=== PATIENT | female | born 1985 | race Caucasian/White ===

== ENCOUNTER 2016-09-05 16:43 | Observation (INO) ==
--- NOTE | 2016-09-05 19:35 | Emergency Department Note ---
Disposition Clinical Impression: Abscess of neck Disposition: Still a Patient Condition: Undetermined Referrals: Yancy Luke CNP [Primary Care Provider] - Forms: ED Satisfaction Letter Time of Disposition: 21:12 Neck Injury/Pain HPI - General Chief Complaint: ED Neck Pain/Injury Stated Complaint: neck swelling and pain Time Seen by Provider: 09/05/16 18:54 Source: patient Mode of arrival: ambulatory Limitations: no limitations Nursing Notes Reviewed: Yes Vital Signs Reviewed: Yes - History of Present Illness HPI Narrative: 30-year-old female previous drug abuser [facility] emergency department after a relapse after a year where she injected her neck attempting to inject heroin and missed the vein. The patient since then has been complaining of worsening neck swelling and pain in the left lateral neck. The patient was seen by PCP today who referred the patient to the emergency department. The patient denies any difficulty breathing, chest pain, fevers. Difficulty swallowing due to pain. The patient states that it is tender to palpation. She denies any other complaints at this time. Pt Subjective Complaint: neck pain Onset (ago): day(s) (4) Radiation: left lateral Pain Severity: severe Pain Scale: 8 Quality: stabbing Duration: constant, gradually worsening Improves with: none Worsens with: none Associated symptoms: Reports: difficulty swallowing Treatments prior to arrival: none - Related Data Home Medications Medication Instructions Recorded Confirmed Gabapentin [Neurontin] 800 mg PO TID 09/05/16 09/05/16 Meloxicam [Meloxicam] 15 mg PO DAILY 09/05/16 09/05/16 Nicotine Patch [Nicoderm] 21 mg TD DAILY 09/05/16 09/05/16 cloNIDine HCl [CloNIDine HCl] 0.1 mg PO HS 09/05/16 09/05/16 lamoTRIgine [Lamictal] 100 mg PO HS 09/05/16 09/05/16 Allergies Allergy/AdvReac Type Severity Reaction Status Date / Time No Known Allergies Allergy Verified 03/21/16 21:01 All systems ED: reviewed and negative except as stated. Constitutional: Denies: fever, chills, weakness, weight change Eyes: Denies: eye pain, eye discharge, vision change ENT ED: Reports: throat pain, dysphagia Cardiovascular: Denies: chest pain, palpitations, dyspnea on exertion, edema, syncope Respiratory: Denies: cough, dyspnea, wheezes, hemoptysis, stridor Gastrointestinal: Denies: abdominal pain, nausea, vomiting, diarrhea, constipation, hematemesis, melena, hematochezia Musculoskeletal: Denies: back pain, neck pain, arthralgia, myalgia Integumentary: Denies: rash, abrasion, lesions Neurological: Denies: headache, weakness, numbness, paresthesias, confusion, abnormal gait, vertigo Past Medical History - Past Medical History Attestation: Yes The following information was validated with the patient. 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[employer] history: Reports: spontaneous - Social History Smoking Status: Current some day smoker Smokeless Tobacco Status: No Alcohol use: Reports: none Drug use: Reports: IVDU Physical Exam - General Limitations: no limitations General appearance: alert, in no apparent distress - Head Head exam: atraumatic, normocephalic, normal inspection - Eye Eye exam: Present: normal appearance, PERRL, EOMI - ENT ENT exam: normal oropharynx - Neck Neck exam: Present: tenderness, other (Large left sided mass and swelling, tender to palpation, warm to touch, roughly 8-10 cm in diameter.) - Chest Chest inspection: Present: normal inspection, symmetric chest wall rise - Respiratory Respiratory exam: Present: normal lung sounds bilaterally - Cardiovascular Cardiovascular exam: Present: regular rate, normal rhythm, normal heart sounds - Abdominal Exam Abdominal exam: Present: soft, Non-Tender. Absent: tenderness, distention, guarding, rebound, rigidity - Extremities Exam Extremities exam: Present: normal inspection, full ROM. Absent: tenderness, pedal edema - Back Exam Back exam: Present: normal inspection, full ROM. Absent: tenderness - Neurological Exam Neurological exam: Present: alert, oriented X3 - Skin Skin exam: Present: warm, dry, intact, normal color Course Vital Signs Temperature 98.1 F 09/05/16 17:16 Pulse Rate 130 09/05/16 17:16 Respiratory Rate 20 09/05/16 17:16 Blood Pressure 154/90 09/05/16 17:16 O2 Sat by Pulse Oximetry 98 09/05/16 17:16 Temperature 98.1 F 09/05/16 17:16 Pulse Rate 127 09/05/16 18:58 Respiratory Rate 18 09/05/16 18:58 Blood Pressure 126/85 09/05/16 18:58 O2 Sat by Pulse Oximetry 100 09/05/16 18:58 Oxygen Delivery Oxygen Delivery Room Air Neck Pain - MDM Narrative Medical decision making narrative: Patient has appearance of myositis versus cellulitis of the left neck with developing abscess within the left SCM. The patient was administered vancomycin and clindamycin. We will admit the patient to the hospital. ENT was consulted. Recommended admitting to the hospitalist service and they will consult. Recommended 20 mg of Decadron. Agreed with plan for vancomycin and clindamycin. - Lab Data Lab results reviewed: Yes I reviewed the patient's lab results. Result diagrams: 09/05/16 20:51 09/05/16 19:34 Lab Results 09/05/16 09/05/16 09/05/16 Range/Units 19:34 19:34 20:51 WBC 15.9 H (4.3-11.1) K/mcL RBC 4.99 H (3.82-4.97) M/mcL Hgb 13.6 (11.5-15.4) g/dL Hct 43.1 (35.3-44.9) % MCV 86.4 (83.0-100.0) fL MCH 27.3 L (28.0-33.3) pg MCHC 31.6 (31.6-35.5) g/dL RDW 14.0 (11.5-14.5) % Plt Count 330 (140-400) K/mcL MPV 10.6 (9.4-12.4) fL Immature Gran % 0.8 (0-4) % Seg Neutrophils % 78.4 % Lymphocytes % 13.0 % Monocytes % 4.2 % Eosinophils % 3.3 % Basophils % 0.3 % Neutrophils # 12.4 H (1.6-8.9) K/mcL Lymphocytes # 2.1 (0.6-4.6) K/mcL Monocytes # 0.7 (0.0-1.3) K/mcL Eosinophils # 0.5 (0.0-0.6) K/mcL Basophils # 0.1 (0.0-0.2) K/mcL ESR (0-15) mm/hr Sodium 139 (136-145) mEq/L Potassium 3.6 (3.5-4.5) mEq/L Chloride 107 (98-109) mEq/L Carbon Dioxide 22 (19-29) mEq/L BUN 8 (7-20) mg/dL Creatinine 0.77 (0.57-1.11) mg/dL Est GFR ( Amer) > 60 (> 60) Est GFR (Non-Af Amer) > 60 (> 60) BUN/Creatinine Ratio 10 (6-26) Glucose 104 H (70-99) mg/dL Calculated Osmolality 287 (280-300) Calcium 9.8 (8.6-10.8) mg/dL Serum , Qual Negative (Negative) 09/05/16 Range/Units 20:51 WBC (4.3-11.1) K/mcL RBC (3.82-4.97) M/mcL Hgb (11.5-15.4) g/dL Hct (35.3-44.9) % MCV (83.0-100.0) fL MCH (28.0-33.3) pg MCHC (31.6-35.5) g/dL RDW (11.5-14.5) % Plt Count (140-400) K/mcL MPV (9.4-12.4) fL Immature Gran % (0-4) % Seg Neutrophils % % Lymphocytes % % Monocytes % % Eosinophils % % Basophils % % Neutrophils # (1.6-8.9) K/mcL Lymphocytes # (0.6-4.6) K/mcL Monocytes # (0.0-1.3) K/mcL Eosinophils # (0.0-0.6) K/mcL Basophils # (0.0-0.2) K/mcL ESR 47 H (0-15) mm/hr Sodium (136-145) mEq/L Potassium (3.5-4.5) mEq/L Chloride (98-109) mEq/L Carbon Dioxide (19-29) mEq/L BUN (7-20) mg/dL Creatinine (0.57-1.11) mg/dL Est GFR ( Amer) (> 60) Est GFR (Non-Af Amer) (> 60) BUN/Creatinine Ratio (6-26) Glucose (70-99) mg/dL Calculated Osmolality (280-300) Calcium (8.6-10.8) mg/dL Serum , Qual (Negative) - Radiology Data Radiology results reviewed: Yes I reviewed the patient's radiology results. Attestation Statement - Attestation Attestation: Patient was seen with resident physician. I reviewed the history, physical, assessment and plan, and agree with the findings. I also personally evaluated this patient and had [id number] time with this patient. 22-year-old female presents to the emergency department with chief complaint of swelling to the left neck. Patient denied week the heroin abuser and she said 4 days ago she attempted to inject into her neck but she missed and now the area is swollen and tender and a little bit warm. She denies fevers or chills. She is not any trouble breathing she has had slight trouble swallowing. On examination vital signs are stable. Heart and lungs normal. Abdomen is soft and nontender. Extremities unremarkable. Neck examination patient has a swollen masslike area to the left side just above the clavicle airway appears intact. There are no bruits over the area. Carotid pulses intact bilaterally. Neurologically patient is intact. ED course we will get a CT scan of the neck with IV contrast to look for possible abscess or other vascular abnormality. We will also check basic labs. As well as blood cultures. CT scan revealed a developing abscess on the left side of the neck. ENT was contacted to review treatment options. Dexamethasone clindamycin and vancomycin were all administered. Hospitalist was notified as to the need for hospitalization. Patient had no breathing compromise while in the emergency department and her vital signs remained stable. She had no signs of heroin withdrawal. Patient was admitted in stable condition. Agree with the resident physician assessment and plan.
[2016-09-05 19:54] LABS: BUN/Creatinine Ratio 10 (6-26); Blood Urea Nitrogen 8 mg/dL (7-20); Calcium 9.8 mg/dL (8.6-10.8); Carbon Dioxide 22 mEq/L (19-29); Chloride 107 mEq/L (98-109); Glucose 104 mg/dL (70-99); Osmolality,Calculated 287 (280-300); Potassium 3.6 mEq/L (3.5-4.5); Sodium 139 mEq/L (136-145); eGFR For African Americans > 60 (> 60); eGFR For Non-African Americans > 60 (> 60)
[2016-09-05 21:00] LABS: Basophils # 0.1 K/mcL (0.0-0.2); Basophils % 0.3 %; Eosinophils # 0.5 K/mcL (0.0-0.6); Eosinophils % 3.3 %; Hematocrit 43.1 % (35.3-44.9); Hemoglobin 13.6 g/dL (11.5-15.4); Immature Granulocytes % 0.8 % (0-4); Lymphocytes # 2.1 K/mcL (0.6-4.6); Mean Corpuscular HGB Conc 31.6 g/dL (31.6-35.5); Mean Corpuscular Hemoglobin 27.3 pg (28.0-33.3); Mean Corpuscular Volume 86.4 fL (83.0-100.0); Mean Platelet Volume 10.6 fL (9.4-12.4); Monocytes # 0.7 K/mcL (0.0-1.3); Monocytes % 4.2 %; Neutrophils # 12.4 K/mcL (1.6-8.9); Platelet Count 330 K/mcL (140-400); Red Blood Count 4.99 M/mcL (3.82-4.97); Segmented Neutrophils % 78.4 %
[2016-09-05] MEDS ORDERED: Clindamycin 900 MG/50 ML 900 MG/50 ML IV.SOLN IVPB ONE (21:10)
[2016-09-05] MEDS ORDERED: Vancomycin 1,000 MG in D5% in Water 250 ML IVPB ONE (21:10)
[2016-09-05] MEDS ORDERED: Dexamethasone 4 MG/ML VIAL IVP ONE (21:15)
[2016-09-05] MEDS ORDERED: Ketorolac 30 MG/ML VIAL IVP ONE (21:49)
[2016-09-05] MEDS ORDERED: Acetaminophen 325 MG TABLET PO PRN (23:33)
[2016-09-05] MEDS ORDERED: Ketorolac 30 MG/ML VIAL IVP PRN (23:33)
[2016-09-05] MEDS ORDERED: Naloxone 0.4 MG/ML INJ IVP PRN (23:33)
[2016-09-05] MEDS ORDERED: Vancomycin 1,500 MG in D5% in Water 250 ML IVPB SCH (23:45)
[2016-09-06] MEDS: 0.9 % Sodium Chloride 1,000 ML IVC SCH ×2 (00:16→09:48)
[2016-09-06] MEDS: Clindamycin 600 MG/50 ML 600 MG/50 ML IV.SOLN IVPB SCH ×3 (00:17→15:52)
[2016-09-06] MEDS: Vancomycin 1,500 MG in D5% in Water 250 ML IVPB SCH ×2 (02:14→13:37)
--- NOTE | 2016-09-06 05:10 | Internal Med History&Physical ---
Date of Encounter: 09/06/16 Time of Encounter: 01:00 Assessment and Plan (1) Sepsis Current visit: Yes Status: Acute patient has leukocytosis and tachycardia. Neck soft tissue infection. Meet criteria of sepsis. - Goal-directed IV fluid resuscitation. - Antibiotic started. - Lactic acid level 0.9 - follow-up the blood culture result. Qualifiers: Sepsis type: sepsis due to unspecified organism Qualified Code(s): A41.9 - Sepsis, unspecified organism (2) DVT prophylaxis Current visit: Yes Status: Acute Lovenox subcutaneously (3) IV drug abuse Current visit: Yes Status: Acute We will consult geriatric social work professor. (4) Tobacco abuse Current visit: Yes Status: Acute Smoking cessation education. Patient was placed on nicotine patch. (5) Abscess of neck Current visit: Yes Status: Acute ENT consult called by ER doctor. Patient has no difficult breathing or swallowing. - Continue Vanco and the clindamycin. - Closely monitor patient. Patient is at high risk because of vancomycin use, need close monitoring. Internal Medicine - H&P: HPI Chief complaint: Neck swelling Admitted From: Home Plans for Post Hospital Care: Home History of present illness: Ms. Pang is a 30 year old female with history of IV drug use present to ER for left-sided neck swelling and pain. Patient said one week ago she tried to inject drugs to her neck. She started has neck pain and swelling since 3 days ago, the pain is getting worse gradually. She had no fever, no nausea, no vomiting. The pain is stubbing, 10 out of 10. In emergency room, CT scan has been done shows neck cellulitis and a possible abscess. ENT consult was called by emergency room, recommend start Vanco and clindamycin and ENT will see patient in a.m. Discussed the CODE STATUS with patient. Full code. Past Med Surg Social Fam HX - Past Medical History Medical history: hepatitis, other Psychiatric history: anxiety, depression - Past Surgical History Surgical History: no surgical history - Social History Smoking Status: Current some day smoker Smokeless Tobacco Status: No Alcohol use: none Drug use: IVDU - Family History Father Age: 55 Family Member Ethnicity: Non- Living Status: Still Living Hx Family Cardiac Disorders: Yes (HTN) Hx Family Respiratory Disorders: Yes (COPD) Hx Family Cancer: No Hx Family GI Disorders: No Hx Family Genitourinary Disorders: No Hx Family Endocrine Disorder: No Hx Family Musculoskeletal Disorders: No Hx Family Neuromuscular Disorders: No Hx Family Neurologic Disorders: No Hx Family HEENT Disorders: No Hx Family Autoimmune Disorders: No Hx Family Reproductive Disorders: No Hx Family Psychosocial Disorders: Yes (Anxiety, Alcoholism) Hx Family Medical Disorders: No Internal Medicine - H&P: Meds Gabapentin [Neurontin] 800 mg PO TID 09/05/16 [History] Meloxicam [Meloxicam] 15 mg PO DAILY 09/05/16 [History] Nicotine Patch [Nicoderm] 21 mg TD DAILY 09/05/16 [History] cloNIDine HCl [CloNIDine HCl] 0.1 mg PO HS 09/05/16 [History] lamoTRIgine [Lamictal] 100 mg PO HS 09/05/16 [History] Allergies No Known Allergies Allergy (Verified 03/21/16 21:01) All Systems PM: A 10-system review of systems was performed and is negative for pertinent findings except as documented above in the HPI. - Constitutional Vitals: Temp Pulse Resp BP Pulse Ox 97.9 F 109 16 124/86 97 09/06/16 03:31 09/06/16 03:31 09/06/16 03:31 09/06/16 03:31 09/06/16 03:31 General appearance: Present: A&O X 3, no acute distress, answers questions appropriately - Head Head exam: Present: atraumatic, normocephalic - Eye Eye exam: Present: PERRL, conjuntiva pink, sclera anicteric Pupils: Present: PERRL - Neck Neck exam general surgery: Present: supple, trachea midline. Absent: lymphadenopathy Additional comments: Left sided neck swelling, tenderness. Airway is patent. - Respiratory Respiratory exam: Present: CTAB. Absent: accessory muscle use, rales, rhonchi, wheezes - Cardiovascular Cardiovascular exam: Present: RRR, +S1, +S2. Absent: diastolic murmur, gallop, rubs, systolic murmur - GI/Abdominal GI/Abdominal exam: Present: normal bowel sounds, soft, no peritoneal signs. Absent: distended, tenderness - Extremities Exam Extremities exam: Present: warm, radial pulses palpable and symetrical. Absent : calf tenderness, cyanotic, pedal edema - Neurological Exam Neurological exam: Present: CN II-XII intact, oriented X3, no focal deficits. Absent: pronater drift, facial droop, speech deficit - Skin Skin exam: Present: dry, intact Internal Med - H&P Results - Labs CBC & Chem 7: 09/05/16 20:51 09/05/16 19:34
[2016-09-06] MEDS ORDERED: *HR* Enoxaparin 40 MG/0.4 ML SYRINGE SQ SCH (06:00)
[2016-09-06 07:15] LABS: Hematocrit 37.7 % (35.3-44.9); Hemoglobin 12.6 g/dL (11.5-15.4); Immature Granulocytes % 1.3 % (0-4); Lymphocytes % 3.8 %; Mean Corpuscular HGB Conc 33.4 g/dL (31.6-35.5); Mean Corpuscular Hemoglobin 28.3 pg (28.0-33.3); Mean Corpuscular Volume 84.5 fL (83.0-100.0); Mean Platelet Volume 11.5 fL (9.4-12.4); Platelet Count 305 K/mcL (140-400); Red Blood Count 4.46 M/mcL (3.82-4.97); Red Cell Distribution Width 13.7 % (11.5-14.5); Segmented Neutrophils % 93.6 %
[2016-09-06 07:16] LABS: Basophils % 0.1 %; Eosinophils % 0.2 %; Lymphocytes # 0.6 K/mcL (0.6-4.6); Monocytes # 0.2 K/mcL (0.0-1.3); Neutrophils # 15.5 K/mcL (1.6-8.9); Nucleated Red Blood Cells 0.1 /100 WBC (0)
[2016-09-06 07:31] LABS: BUN/Creatinine Ratio 14 (6-26); Blood Urea Nitrogen 11 mg/dL (7-20); Calcium 9.2 mg/dL (8.6-10.8); Carbon Dioxide 26 mEq/L (19-29); Chloride 106 mEq/L (98-109); Glucose 158 mg/dL (70-99); Osmolality,Calculated 291 (280-300); Potassium 4.3 mEq/L (3.5-4.5); Sodium 139 mEq/L (136-145); eGFR For African Americans > 60 (> 60); eGFR For Non-African Americans > 60 (> 60)
--- NOTE | 2016-09-06 07:47 | ENT - Consult Note ---
Date of Encounter: 09/06/16 Time of Encounter: 07:43 Assessment and Plan (1) Cellulitis of neck Current Visit: Yes Status: Acute CT scan of the neck reviewed and clinical exam of the neck was performed at the bedside this a.m. No evidence of discrete abscess on CT or physical exam. Patient does not have any ring-enhancing lesion although she does have some swelling and cellulitis displayed on the CT scan specifically around the left SCM muscle. This muscle was slightly firm on palpation but no fluctuance is palpated. Patient with significant improvement after IV antibiotics as well as IV steroids dose in the ED last p.m. I would not recommend surgical intervention at this time. Airway is patent on CT scan as patient is breathing comfortably without any distress. Recommend continuing her current medical management with coverage of MRSA as patient with history of IV drug abuse. We will continue to monitor for improvement. (2) IV drug abuse Current Visit: Yes Status: Acute History of Present Illness Consult date: 09/06/16 Reason for ENT Consult: neck mass History of present illness: Patient is a 30-year-old female that presented in the emergency department with 3 days of left neck swelling. Patient is an IV drug abuser and relapsed and attempted to inject airway and into the left neck vasculature and apparently missed her vein 4 days ago. Patient subsequently developed swelling in that area that has been increasing in size and tenderness over the past 3 days. Patient was admitted to the emergency Department given steroids as well as IV antibiotics. Patient states that swelling has decreased significantly since last night. Pain is also decreased significantly. Patient's neck is slightly tender today because she could not touch or move her neck last night. Patient able to freely turn her neck this morning. Patient denies any trouble swallowing or breathing this a.m. Patient asked if she can go home today. Past Med Surg Social Fam HX - Past Medical History Medical history: hepatitis, other Psychiatric history: anxiety, depression - Past Surgical History Surgical History: no surgical history - Social History Smoking Status: Current some day smoker Smokeless Tobacco Status: No Alcohol use: none Drug use: IVDU - Family History Father Age: 55 Family Member Ethnicity: Non- Living Status: Still Living Hx Family Cardiac Disorders: Yes (HTN) Hx Family Respiratory Disorders: Yes (COPD) Hx Family Cancer: No Hx Family GI Disorders: No Hx Family Genitourinary Disorders: No Hx Family Endocrine Disorder: No Hx Family Musculoskeletal Disorders: No Hx Family Neuromuscular Disorders: No Hx Family Neurologic Disorders: No Hx Family HEENT Disorders: No Hx Family Autoimmune Disorders: No Hx Family Reproductive Disorders: No Hx Family Psychosocial Disorders: Yes (Anxiety, Alcoholism) Hx Family Medical Disorders: No Medications and Allergies Gabapentin [Neurontin] 800 mg PO TID 09/05/16 [History] Meloxicam [Meloxicam] 15 mg PO DAILY 09/05/16 [History] Nicotine Patch [Nicoderm] 21 mg TD DAILY 09/05/16 [History] cloNIDine HCl [CloNIDine HCl] 0.1 mg PO HS 09/05/16 [History] lamoTRIgine [Lamictal] 100 mg PO HS 09/05/16 [History] Allergies No Known Allergies Allergy (Verified 03/21/16 21:01) ENT - ROS - EENT Nose, mouth and throat: neck pain, other (Neck swelling), no dysphagia, no odynophagia, no throat swelling, no tongue swelling - Respiratory no dyspnea, no wheezing, no stridor ENT Exam Initial Vital Signs Temp Pulse Resp BP Pulse Ox 98.1 F 130 20 154/90 98 09/05/16 17:16 09/05/16 17:16 09/05/16 17:16 09/05/16 17:16 09/05/16 17:16 - General physical appearance well developed, well nourished, no distress - Eyes PERRL, normal ocular movement - ENT normal pinna, normal nares, CN 2-12 grossly intact - Neck trachea midline, other (Firmness of the left SCM along the anterior border and slight enlargement, overlying skin without erythema or open wound, full range of motion of the neck no fluctuance palpated) - Respiratory normal expansion, normal respiratory effort Exam Initial Vital Signs Temp Pulse Resp BP Pulse Ox 98.1 F 130 20 154/90 98 09/05/16 17:16 09/05/16 17:16 09/05/16 17:16 09/05/16 17:16 09/05/16 17:16 Results - Labs 09/06/16 06:54 09/06/16 06:54 Abnormal lab results WBC 15.9 K/mcL (4.3-11.1) H 09/05/16 20:51 RBC 4.99 M/mcL (3.82-4.97) H 09/05/16 20:51 MCH 27.3 pg (28.0-33.3) L 09/05/16 20:51 Neutrophils # 12.4 K/mcL (1.6-8.9) H 09/05/16 20:51 ESR 47 mm/hr (0-15) H 09/05/16 20:51 Glucose 158 mg/dL (70-99) H 09/06/16 06:54 Diabetes panel 09/06/16 Range/Units 06:54 Sodium 139 (136-145) mEq/L Potassium 4.3 (3.5-4.5) mEq/L Chloride 106 (98-109) mEq/L Carbon Dioxide 26 (19-29) mEq/L BUN 11 (7-20) mg/dL Creatinine 0.76 (0.57-1.11) mg/dL Glucose 158 H (70-99) mg/dL Calcium 9.2 (8.6-10.8) mg/dL Calcium panel 09/06/16 Range/Units 06:54 Calcium 9.2 (8.6-10.8) mg/dL Pituitary panel 09/06/16 Range/Units 06:54 Sodium 139 (136-145) mEq/L Potassium 4.3 (3.5-4.5) mEq/L Chloride 106 (98-109) mEq/L Carbon Dioxide 26 (19-29) mEq/L BUN 11 (7-20) mg/dL Creatinine 0.76 (0.57-1.11) mg/dL Glucose 158 H (70-99) mg/dL Calcium 9.2 (8.6-10.8) mg/dL Adrenal panel 09/06/16 Range/Units 06:54 Sodium 139 (136-145) mEq/L Potassium 4.3 (3.5-4.5) mEq/L Chloride 106 (98-109) mEq/L Carbon Dioxide 26 (19-29) mEq/L BUN 11 (7-20) mg/dL Creatinine 0.76 (0.57-1.11) mg/dL Glucose 158 H (70-99) mg/dL Calcium 9.2 (8.6-10.8) mg/dL All other labs normal. Consult Discharge Plan - Plan Referrals: Yancy Luke, TSERING [Primary Care Provider] -
[2016-09-06 07:48] LABS: Platelet Estimate Normal (Normal)
--- NOTE | 2016-09-06 08:11 | Internal Med Progress Note ---
<Ankit Siu - Last Filed: 09/06/16 17:00> Date of Encounter: 09/06/16 Time of Encounter: 08:11 - Assessment and plan (1) Neck swelling Current Visit: Yes Status: Acute Assessment and plan: Mrs. Pang 30-year-old female with a history of IV drug abuse presented to the emergency department with left neck swelling after injecting heroin. She says that she injected into her neck because she has bad arm and leg veins from 8 years of injecting. She says she was clean for 1.5 years and recently relapsed. - Neck swelling improved. - Improved range of motion - Patient says pain is resolved. Left neck is still very swollen, ENT is involved and do not recommend surgical intervention at this time. Continue medical management. - Patient is swallowing appropriately, no signs of distress and breathing appropriate. Trachea midline, no superficial cellulites. Plan: - Continue Clindamycin and Vancomycin. - Patient not ready for discharge. (2) Sepsis Current Visit: Yes Status: Acute Assessment and plan: Patient continues to meet sepsis criteria with tachycardia and WBC count of 16.6. -Blood cultures collected in the emergency department with results still pending - Original lactic acid was 0.9 - On Vancomycin and Clindamycin Plan: - Continue broad spectrum antibiotics - D/C fluids as patients vitals are stable and without end organ damage - Continue to monitor closely Qualifiers: Sepsis type: sepsis due to unspecified organism Qualified Code(s): A41.9 - Sepsis, unspecified organism (3) IV drug abuse Current Visit: Yes Status: Acute Assessment and plan: Current issue. Patient has significant hx of Heroin abuse. - clinical services assistant consult. (4) Tobacco abuse Current Visit: Yes Status: Acute Assessment and plan: daily smoker - Patient provided a Nicotine patch. (5) DVT prophylaxis Current Visit: Yes Status: Acute Assessment and plan: Lovenox 40mg daily - Subjective Interval history: Ms. Pang has been seen and evaluated this am. She is awake alert and in no acute distress. She feels much better after starting antibiotics and feels there has been significant improvement in her left neck swelling and pain. She says she can move her neck in all directions, swallow without difficulty, denies breathing difficulty or pain with neck motion. She does recognize she has continued neck swelling but feels this is much improved. She denies any fevers, chills, night sweating, neck pain, chest pain, chest pressure, SOB, coughing, abdominal pain, N/V/D/C, urinary changes or other concerns. She wishes to be discharged today because she says her syruper can not watch her children after 7pm. - Constitutional Vitals: Temp Pulse Resp BP Pulse Ox 97.9 F 109 16 124/86 97 09/06/16 03:31 09/06/16 03:31 09/06/16 03:31 09/06/16 03:31 09/06/16 03:31 General appearance: Present: A&O X 3, no acute distress, answers questions appropriately Exam: GEN: alert, awake, AOx3, NC/AT no acute distress sitting up in bed HEENT: NC/AT PERRLA, EOMI, left neck swelling, nontender to palpation, no erythema, eccymosis, trachea midline, voice appropriate, no difficulty talking. Chest: symmetric b/l correlating with respiratory effort Resp: CTABL, no wheezing or rales Cardiac: RRR, no murmurs or gallops Abdominal: soft nontender, + BS extremities: no signs of erythema, edema or ulcers. Internal Medicine: Result - Labs CBC & Chem 7: 09/06/16 06:54 09/06/16 06:54 Labs: Short CBC 09/06/16 Range/Units 06:54 WBC 16.6 H (4.3-11.1) K/mcL Hgb 12.6 (11.5-15.4) g/dL Hct 37.7 (35.3-44.9) % Plt Count 305 (140-400) K/mcL Neutrophils # 15.5 H (1.6-8.9) K/mcL BMP 09/06/16 06:54 Sodium 139 Potassium 4.3 Chloride 106 Carbon Dioxide 26 BUN 11 Creatinine 0.76 Glucose 158 H Calcium 9.2 Consult Discharge Plan - Plan Instructions: Sepsis (DC) Additional Instructions: I highly recommend close follow-up with your primary care provider in the next day. Avoid injecting or taking any illegal drugs Take prescribed antibiotics. If you have any recurrence of swelling in her neck, worsening of symptoms, new symptoms he should return to the emergency department as it was highly advised to not leave the hospital in the first place. - Patient has chosen to leave AGAINST MEDICAL ADVICE. Referrals: Alejandro Mckeon MD [Partnered Physician] - 09/16/16 11:30 am Prescriptions: Fluconazole [Diflucan] 150 mg PO DAILY #1 tab Sulfamethoxazole/Trimeth DS [Bactrim DS] 1 each PO BID #20 tablet <[email or web address] - Last Filed: 09/06/16 17:32> Date of Encounter: 09/06/16 - Constitutional Vitals: Temp Pulse Resp BP Pulse Ox 98.3 F 102 15 112/75 97 09/06/16 15:33 09/06/16 15:33 09/06/16 15:33 09/06/16 15:33 09/06/16 15:33 Internal Medicine: Result - Labs CBC & Chem 7: 09/06/16 06:54 09/06/16 06:54 Labs: Short CBC 09/06/16 Range/Units 06:54 WBC 16.6 H (4.3-11.1) K/mcL Hgb 12.6 (11.5-15.4) g/dL Hct 37.7 (35.3-44.9) % Plt Count 305 (140-400) K/mcL Neutrophils # 15.5 H (1.6-8.9) K/mcL BMP 09/06/16 06:54 Sodium 139 Potassium 4.3 Chloride 106 Carbon Dioxide 26 BUN 11 Creatinine 0.76 Glucose 158 H Calcium 9.2 - Attending Attestation I examined this patient and my medical decision-making was reviewed with the ENGINEERING VICE PRESIDENT/PA/Advanced Practice Nurse/Resident Physician. I agree with the documented findings, disposition and treatment plan as described except to the extent set forth below. atient wants to signAMA, she is alert. oriented and able to make decisions. Discussed risks in including permanent disability and , she expressed understanding.
[2016-09-06] MEDS ORDERED: Lactobacillus 1 EACH CAP.SPRINK PO SCH (09:00)
[2016-09-06] MEDS ORDERED: Nicotine 21 MG PATCH.TD24 TD SCH (09:00)
[2016-09-06] MEDS: Gabapentin 400 MG CAPSULE PO SCH ×2 (09:49→15:50)
[2016-09-06 15:35] VITALS: BP 112/75
--- NOTE | 2016-09-06 16:52 | Discharge Summary ---
<Ankit Siu - Last Filed: 09/06/16 16:46> Date of Encounter: 09/06/16 Time of Encounter: 16:46 - Discharge Diagnosis (1) Neck swelling Priority: Primary Status: Acute (2) Sepsis Priority: Primary Status: Acute Qualifiers: Sepsis type: sepsis due to unspecified organism Qualified Code(s): A41.9 - Sepsis, unspecified organism (3) IV drug abuse Priority: Primary Status: Acute (4) Tobacco abuse Priority: Primary Status: Acute (5) DVT prophylaxis Priority: Secondary Status: Acute - Discharge Medications Prescriptions: Fluconazole [Diflucan] 150 mg PO DAILY #1 tab Sulfamethoxazole/Trimeth DS [Bactrim DS] 1 each PO BID #20 tablet Home Medications: Gabapentin [Neurontin] 800 mg PO TID 09/05/16 [History] Meloxicam 15 mg PO DAILY 09/05/16 [History] Nicotine Patch [Nicoderm] 21 mg TD DAILY 09/05/16 [History] cloNIDine HCl [CloNIDine HCl] 0.1 mg PO HS 09/05/16 [History] lamoTRIgine [Lamictal] 100 mg PO HS 09/05/16 [History] Fluconazole [Diflucan] 150 mg PO DAILY #1 tab 09/06/16 [Rx] Sulfamethoxazole/Trimeth DS [Bactrim DS] 1 each PO BID #20 tablet 09/06/16 [Rx] Allergies/Adverse Reactions: Allergies No Known Allergies Allergy (Verified 03/21/16 21:01) Date of admission: 09/05/16 21:51 Primary care physician: Yancy Luke CNP Consults: 09/06/16 05:13 Consult to Forest Fire Fighter [CONS] Routine Reason for SW Consult: IVDU Discharging clinician: Ankit Siu Anticipated date of discharge: 09/06/16 - Patient Status Disposition: Left Against Medical Advice Condition: Serious - Discharge Instructions Instructions: Sepsis (DC) Follow Up With: Alejandro Mckeon MD [Partnered Physician] - 09/16/16 11:30 am Additional Instructions: I highly recommend close follow-up with your primary care provider in the next day. Avoid injecting or taking any illegal drugs Take prescribed antibiotics. If you have any recurrence of swelling in her neck, worsening of symptoms, new symptoms he should return to the emergency department as it was highly advised to not leave the hospital in the first place. - Patient has chosen to leave AGAINST MEDICAL ADVICE. Interval History: Mrs. Pang 22-year-old female admitted with sepsis, left neck swelling severe was started on vancomycin and clindamycin for MRSA coverage. She obtained left neck swelling after injecting heroin into her neck. She has decided to leave AGAINST MEDICAL ADVICE due to family problems. I have discussed that this is highly not advised given her neck swelling and risk for recurrence of swelling due to not completing appropriate antibiotic coverage and treatment for potential infection. She runs the risk of obstructing her airway, swelling obstructing vital arteries, veins and other vital structures in her neck. She runs the risk of severe infection as she or he meets sepsis criteria that could lead to . She is of sound mind to make decisions on her own and has decided that she still wants to leave even after understanding her risks. Again this is highly not advised. Since she has opted to leave AGAINST MEDICAL ADVICE I provided a prescription for 10 days of Bactrim DS and a dose of fluconazole 150 mg by mouth once. Hospital course: Ms. Pang is a 30 year old female - Time Spent with Patient Total time spent providing and/or coordinating discharge services: - Constitutional Vitals: Temp Pulse Resp BP Pulse Ox 98.3 F 102 15 112/75 97 09/06/16 15:33 09/06/16 15:33 09/06/16 15:33 09/06/16 15:33 09/06/16 15:33 General appearance: Present: A&O X 3, no acute distress, answers questions appropriately Exam: Refer to today's progress note. <Ruperto Mckeon - Last Filed: 09/07/16 08:25> Date of Encounter: 09/07/16 Date of admission: 09/05/16 21:51 Primary care physician: Yancy Luke CNP Consults: 09/06/16 05:13 Consult to Forest Fire Fighter [CONS] Routine Reason for SW Consult: IVDU Hospital course: Ms. Pang is a 30 year old female - Time Spent with Patient Total time spent providing and/or coordinating discharge services: - Constitutional Vitals: Temp Pulse Resp BP Pulse Ox 98.3 F 102 15 112/75 97 09/06/16 15:33 09/06/16 15:33 09/06/16 15:33 09/06/16 15:33 09/06/16 15:33 - Attending Attestation I examined this patient and my medical decision-making was reviewed with the CHISEL MORTISER OPERATOR/PA/Advanced Practice Nurse/Resident Physician. I agree with the documented findings, disposition and treatment plan as described except to the extent set forth below. Agree with Dr. Siu, patient signed out against medical advice.
[2016-09-06] MEDS ORDERED: Aminoglycoside Consult 1 EACH MC ONE (17:29)
[2016-09-06] MEDS ORDERED: cloNIDine HCl 0.1 MG TABLET PO SCH (21:00)
[2016-09-06] MEDS ORDERED: lamoTRIgine 100 MG TABLET PO SCH (21:00)
== END 2016-09-06 17:30 | disposition left against medical advice (07) ==
LOC: EMEROO 16:43 → 3ANU 16:43 → SUATTDRO 21:51 → 3ANU 22:32
PROVIDERS: ADMIT Internal Medicine; ATTEND Internal Medicine